=== PATIENT | female | born 1935 | race Two or more races ===

== ENCOUNTER 2023-05-20 15:54 | Outpatient (CLI) | payer OTHER | END 2023-05-20 15:59 | disposition home or self-care (01) | LOC: RAD 15:54 | DX: M54.2 Cervicalgia (principal); M54.6 Pain in thoracic spine ==

== ENCOUNTER 2024-12-07 09:49 | Emergency (ER) | payer OTHER ==
[~2024-12-07] VITALS: Ht 157.5 cm; Wt 59.0 kg
[~2024-12-07 09:49] MED LIST: DULOXETINE HCL60 MG PO
[2024-12-07] MEDS ORDERED: NABUMETONE500 MG PO (10:22)
[2024-12-07] MEDS ORDERED: METHOCARBAMOL500 MG PO (10:23)
[2024-12-07] MEDS ORDERED: RAYOS1 MG (10:23)
[2024-12-07] MEDS ORDERED: 0.9 % SODIUM CHLORIDE 500 ML IV ONE (10:45)
[2024-12-07] MEDS ORDERED: ACETAMINOPHEN 500 MG GEL..CAP PO ONE ×2 (10:45→11:24)
[2024-12-07 11:58] LABS: HEMATOCRIT 38.3 % (36.0-45.00); HEMOGLOBIN 12.8 g/dL (12.0-15.00); MEAN CELL VOLUME 86.5 fL (80.00-100.00); MEAN CORPUSCULAR HEMOGLOBIN 28.9 pg (27.00-32.0); MEAN CORPUSCULAR HGB CONC 33.4 g/dl (32.0-36.0); PLATELET COUNT 225 K/uL (150-450); RED BLOOD COUNT 4.43 M/uL (4.00-6.00); RED CELL DISTRIBUTION WIDTH 18.1 % (11.5-14.5)
[2024-12-07 12:48] LABS: CALCIUM 8.7 mg/dL (8.5-10.1); CREATININE SERUM 0.79 mg/dL (0.55-1.02); GFR 68.84; POTASSIUM 4.83 mEq/L (3.5-5.1)
[2024-12-07 14:33] LABS: ABG PH 7.418 (7.35-7.45); ABG PO2 69.6 mmHg (80-100); ABG pCO2 40.2 mmHg (35-45); BASE EXCESS 0.9 mmol/l; BICARBONATE 25.4 mmol/l (23-25); Tco2 26.6 mmol/l
[2024-12-07 14:34] LABS: allen test SATISFACTORY; mode ROOM AIR; o2 21 %; puncture site RADIAL LEFT
== END 2024-12-07 15:53 | disposition home or self-care (01) ==
LOC: ER 09:50
PROVIDERS: General Practice
DX: I95.9 Hypotension, unspecified (principal); R00.0 Tachycardia, unspecified; J44.9 Chronic obstructive pulmonary disease, unspecified; Z85.3 Personal history of malignant neoplasm of breast; Z91.013 Allergy to seafood
CPT/HCPCS: 36415; 82803; 96365; 96366; 99283; J3490